=== PATIENT | female | born 1965 | race Caucasian/White ===

== ENCOUNTER → 2016-07-25 | Day surgery (SDC) | payer MEDICARE, OTHER ==
[~2016-07-25] MED LIST: DIAZ5; DOXE25CA2; LACTATED RINGER'S 1,000 ML BAG IV ONE; LIDOCAINE HCL 1% 50 ML VIAL ONE; MEPERIDINE HCL 25 MG/ML VIAL ONE; MIDAZOLAM HCL 2 MG/2 ML VIAL ONE; OXYC15TA3; PROPOFOL 200 MG/20 ML AMP IV ONE; TRIAMCINOLONE ACETONIDE 40 MG/ML VIAL ONE; VENL75TA91
--- NOTE | 2016-07-25 12:06 | TN ---
cc: UGO MEJIA M.D. DATE OF SURGERY 07/25/2016 PREOPERATIVE DIAGNOSIS Left shoulder adhesive capsulitis, calcific tendonitis. POSTOPERATIVE DIAGNOSIS Left shoulder adhesive capsulitis, calcific tendonitis. PROCEDURE Left shoulder manipulation, fluoroscopic guidance of needle, aspiration and steroid injection calcific tendonitis under anesthesia. SURGEON Shara Mejia MD ASSESSMENT Staff SPECIMENS None ESTIMATED BLOOD LOSS None COMPLICATIONS None ANESTHESIA General DRAINS None CONDITION Stable PLAN OF ACTIVITY Per orders. PROCEDURE The patient was brought into the operating room and had satisfactory general anesthesia by Dr. Marshall of the Department of Anesthesia. Initially, the left shoulder was manipulated under anesthesia. We were able to achieve full flexion, full abduction, full external rotation. The left shoulder and upper extremity was then prepped and draped in the usual sterile manner. Under fluoroscopic guidance, an 18 gauge spinal needle was introduced into the calcific tendonitis involving the supraspinatus tendon. It was aspirated multiple times. A pasty calcific tendonitis was aspirated from this region. It then was injected with 1 cc of Kenalog 40 and 13 cc of 1% plain lidocaine. A Band-Aid was placed over the injection site. The patient tolerated the procedure well and arrived in the Recovery Room in stable and satisfactory condition. X-Ray of the left shoulder one view AP, status post left shoulder manipulation, no obvious fracture, dislocation or subluxation. Satisfactory placement 18 gauge spinal needle into the left shoulder calcific tendonitis. MD MARIS Love/EILEEN /11:36 AM /11:59 AM
== END | disposition home or self-care (01) ==
LOC: ESDC 09:08
PROVIDERS: ATTEND Orthopaedic Surgery Orthopaedic Surgery of the Spine
DX: M75.02 Adhesive capsulitis of left shoulder (principal); M75.32 Calcific tendinitis of left shoulder
CPT/HCPCS: 01620; 23700; 73020; 76000; J2175; J2250; J3010; J3301; J7120